=== PATIENT | female | born 1940 | race Caucasian/White ===

== ENCOUNTER 2017-01-13 08:43 | Day surgery (SDC) | payer MEDICARE, OTHER ==
--- NOTE | 2017-01-07 09:43 | PREOP HISTORY & PHYSICAL ---
HISTORY: 76 year old female with previous LASIK surgery x 2 OU and with developing cataracts OU - here for evaluation of declining vision in both eyes ( especially the left eye) ever since she got her new glasses. She is having more trouble seeing the television (sports scores). She also has to get closer to road signs, but she denies any problems with reading (when using over- the-counter readers), or seeing "starbursts or haloes" around lights at night. She prefers to wear [id number] reading glasses when reading. The current glasses are from May of 2016, and were made from an March manifest refraction (made at [facility]). PAST OCULAR HISTORY: LASIK OU (done 09/17/05 - [place] wavefront OD and +0.50 Sphere correction OS for monovision near OS - [facility] on [address] in [place]). Enhancement OU ([place] spherical equivalent OD and +0.75 Spherical equivalent OS on 01/11/06 - IC), Upper lid blepharoplasty and ptosis repair 02/03/07 (done in [place], [place]), Brow lift in May of 2001 (done in [facility]) - patient had a postoperative hematoma with left upper facial nerve palsy ever since, Developing cataracts OD > OS, Scintillating scotomas, Dysfunctional tear syndrome, Compound myopic astigmatism and presbyopia ( monovision near OS), OCULAR MEDICATIONS: None PAST MEDICAL HISTORY: Basal cell carcinoma (C44.91)2005 right forearm Breast cancer, right (C50.911)1993 Bilateral Mastectomy with B Reconstruction; 1 positive lymph node Cataract, nuclear sclerotic senile, bilateral (H25.13) Developing cataracts OU. 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 Seizure (R56.9) @ 30's; Dr Veloz ALLERGIES: Clindamycin HCl *ANTI-INFECTIVE AGENTS - MISC.* Pruritus, Swelling Remeron *ANTIDEPRESSANTS* Sleepiness Zestril *ANTIHYPERTENSIVES* Cough 12/29 FAMILY HISTORY: No Significant Family Ocular History SOCIAL HISTORY: Alcohol Use Drinks Socially. Tobacco Use Former smoker. Quit 1971 1-2 cigarettes per week Vehicle Driving Yes. CURRENT MEDICATIONS: AmLODIPine Besylate (5MG Tablet, 1 Oral daily, Taken starting 06/01/2016) Active. Atenolol (50MG Tablet, 1 Oral daily, Taken starting 08/26/2016) Active. Calcium /Vitamin D (1000mg/800iu Oral QD) Active. Citalopram Hydrobromide (20MG Tablet, 1 Oral daily, Taken starting 09/11/2015) Active. Diclofenac Sodium (75MG Tablet DR, 1 Oral daily, Taken starting 07/08/2016) Active. Estradiol (2MG Tablet, 1 Oral daily, Taken starting 07/13/2016) Active. Oxybutynin Chloride ER (10MG Tablet ER 24HR, 2 Oral daily, Taken starting 08/10) Active. Quinine Sulfate (325MG Tablet, Oral QHS prn) Active. (entry data) Medications Reconciled PAST SURGICAL HISTORY: Appendectomy BROW LIFT (82150) Brow lift in May of 2001 (done in [facility]) - patient had a postoperative hematoma with left upper facial nerve palsy ever since. Debridement of skin and subcutaneous [id number]/29/2016 Outpatient. wound right lower extremity, Dr. Christina LASIK ([id number]) LASIK OU (done 09/17/05 - [place] wavefront OD and +0.50 Sphere correction OS for monovision near OS - [facility] in [place]). Enhancement OU ([place] spherical equivalent OD and +0.75 Spherical equivalent OS on 01/11/06 - [facility]). Lt Breast Reconstruction and Replacment of [id number] Dr Krause Lt Glutues Medius and Minimus [id number] Dr Loza Lt Trochanteric [id number] Dr Loza Oophorectomy; Unilateral ruptured cyst R Ring Finger PIP Jt [id number] Dr Jimi Redd Wrist Reconstructive Surgery Dr Rodriguez Right Index finger DIP fusion with hardware post placed 2012 (OCR) Rotator Cuff Repair - [id number] Dr. Loza Rt Ring Finger PIP Jt Replacement and Rt Index Finger DIP Fusion [id number] Dr Olivo SOUTH with BSO Cervical Cancer Upper eyelid blepharoplasty and ptosis repair Upper lid blepharoplasty and ptosis repair 02/03/07 (done in [place]). REVIEW OF SYSTEMS: General Not Present- Fever. Skin Not Present- New Lesions, Skin Cancer and Skin Problems. HEENT Present- Blurred Vision (Distance) and Visual Disturbances (glare during day and floaters). Not Present- Decreased Hearing, Eye Pain, Sinusitis and Sleep Apnea. Respiratory Not Present- Asthma, Chronic Cough, Emphysema and Shortness of Breath. Breast Present- Breast Cancer. Cardiovascular Present- Hypertension. Not Present- Angina, Heart Problems, Heart Stent and Hyperlipidemia. Gastrointestinal Not Present- Heartburn and PUD. Female Genitourinary Not Present- Kidney Problems. Musculoskeletal Present- Joint Pain. Neurological Not Present- Decreased Memory, Headaches, Stroke and Vertigo. Psychiatric Not Present- Anxiety and Depression. Endocrine Not Present- Diabetes and Thyroid Problems. Hematology Not Present- Bleeding Problems and Blood Clots. Note: Reviewed by Dr. Cornejo. PHYSICAL EXAMINATION: Vitals (Chris Cornejo M.D.; 01/05/2017 5:31 PM) 01/05/2017 5:31 PM Pulse: 50 (Regular) P.OX: 93% (Room air) BP: 168/84 (Sitting, Left Wrist, Small) Chest and Lung Exam Auscultation Breath sounds - Clear and Symmetric throughout. Cardiovascular Auscultation Rhythm - Regular. Heart Sounds - Normal heart sounds. Murmurs & Other Heart Sounds - Auscultation of the heart reveals - No Murmurs. OCULAR EXAMINATION: VISUAL ACUITY: with correction (Glasses) OD 20/30-1 OS 20/40 NEAR J2 at 14" WORKING Rx: OD -1.25 Sphere OS -2.00 + 0.25 x 140 ADD +2.25 (Progressive lens) MANIFEST REFRACTION: OD -1.25 + 0.50 x 065 (20/30 BAT testing (medium setting) 20/80) Slightly better vision in trial frames OS -1.25 + 0.25 x 100 (20/30- BAT testing (medium setting) 20/50) Slightly better vision in trial frames ADD + 2.50 (J1+ at 14") Better near vision in trial frames than previous Rx CONFRONTATIONAL VISUAL PARKER: Normal to counting fingers in four quadrants OU PUPILS: Mild anisocoria OS > OD with no afferent pupillary defect seen EXTERNAL: Normal OU EXTRA-OCULAR MUSCLES: Versions full OU - orthotropic at both distance and near SLIT LAMP EXAM: LIDS/LASHES: Normal OU CONJUNCTIVA: Quiet OU CORNEA: Clear with poor tear film OU AC: Deep and quiet OU IRIS: Normal OU PUPILS: Round OU - dilated to only about 4 mm OU LENS: 3+ dense yellow nuclear sclerosis with 2-3+ vacuolar and diffuse cortical cataract changes OD. 2+ nuclear sclerosis with 2+ vacuolar cortical cataract changes OS ANTERIOR VITREOUS: No anterior vitreous cells or pigment seen OU TONOMETRY: TIME: 10:33 AM OD: 12 mm Hg OS: 12 mm Hg DILATING gtt: Phenylephrine 2.5% + Tropicamide 1% FUNDUS: C/D: 0.4 OD, 0.6 OS (significantly hazier view OD than OS on ophthalmoscopy - due to cataract OD) DISCS: Sharp with clear disc margins OU MACULA: Absent foveal reflex OU VESSELS: Normal OU KERATOMETRY: OD 42.16 / 42.95 x 111 OS 44.10 / 44.77 x AXIAL LENGTH: OD 24.17 +/- 0.008 OS 24.30 +/- 0.011 PERIPHERY: Posterior vitreous detachment OU with no retinal breaks seen IMPRESSION: Cataract, nuclear sclerotic senile, bilateral (H25.13) Story: Visually significant cataracts OD > OS - discussed with patient today who is quite bothered by her current vision and would like to proceed with cataract surgery. We discussed the refractive goals today and the patient would like to be corrected to a near-plano spherical equivalent postoperatively OD. We discussed the difficulty in obtaining accurate intra-ocular lens calculations - especially in light of having had LASIK x 2 OU, and the patient understands this risk and understands that she may require intra-ocular lens exchange if there is too great a deviation from the planned postoperative refractive error. The intra-ocular lens calculations were done using corneal optical coherence tomography and the Chava Fallon IOL power calculator, with a planned SA60AT intra-ocular lens power of +20.0 D OU (for -1.25 spherical equivalent OS in the future). 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 Left upper partial 7th nerve palsy due to a hematoma at the time of brow lift surgery done in 2000 - no evidence of exposure keratitis OS. Dry eye syndrome, bilateral (H04.123) Story: Dysfunctional tear syndrome - the patient is not treating this, but denies any symptoms. Post LASIK OU with monovision near vision OS - the patient had two treatments in both eyes (almost no correction at all OD and was treated for monovision near OS). PLAN: Cataract extraction with intra-ocular lens OD, January 13, 2017. Erythromycin ophthalmic ointment q hs OU as blepharitis prophylaxis (an e-Rx with refills x 1 was sent to [facility] in [place] ([phone] ) today). OPHTHALMIC BIOMETRY BY PARTIAL COHERENCE INTERFEROMETRY (94241) SCANNING COMPUTERIZED OPHTHALMIC DIAGNOSTIC IMAGING OF ANTERIOR SEGMENT (38722) Started Erythromycin 5MG/GM, Apply 1/8 inch Ointment to the eyelashes of both eyes at bedtime, 1 Tube, 01/05/2017, Ref. x1. Started Zymaxid 0.5%, 1 drop(s) four times daily to the operated eye, after surgery, 1 Bottle, 01/05/2017, Ref. x1. Started PrednisoLONE Acetate 1%, 1 drop(s) four times daily in the operated eye , after surgery, 10 Milliliter, 01/05/2017, Ref. x1. MTDD
[~2017-01-13 08:43] MED LIST: APRACLONIDINE 0.5% OPHTH 5 ML BTL OP ONE; BUPIVACAINE HCL/PF 0.75% 10 ML VIAL OP ONE; CIPROFLOXACIN 0.3% OPHTH 50 DROP/5 ML BTL OP SCH; CYCLOPENTOLATE HCL 1% OPHTH 2 ML BTL OP SCH; FLURBIPROFEN 0.03% OPHTH 2.5 ML BTL OP SCH; PHENYLEPHRINE 2.5% OPHTH 10 DROP/2 ML BTL OP SCH
[2017-01-13 09:43] VITALS: TEMP 97.5
[2017-01-13] MEDS ORDERED: APRACLONIDINE 0.5% OPHTH 5 ML BTL ONE (09:54)
[2017-01-13] MEDS ORDERED: FLURBIPROFEN 0.03% OPHTH 2.5 ML BTL ONE (09:54)
[2017-01-13] MEDS ORDERED: BUPIVACAINE HCL/PF 0.75% 10 ML VIAL ONE (09:54)
[2017-01-13] MEDS ORDERED: CYCLOPENTOLATE HCL 1% OPHTH 2 ML BTL ONE (09:54)
[2017-01-13] MEDS ORDERED: CIPROFLOXACIN 0.3% OPHTH 50 DROP/5 ML BTL ONE (09:54)
[2017-01-13] MEDS ORDERED: PHENYLEPHRINE 2.5% OPHTH 10 DROP/2 ML BTL ONE (09:54)
[2017-01-13] MEDS ORDERED: MIDAZOLAM HCL 2 MG/2 ML VIAL ONE (10:48)
[2017-01-13] MEDS ORDERED: KETOROLAC 0.45% OPHTH 1 DROP/EACH DROPERETTE ONE (11:23)
[2017-01-13] MEDS ORDERED: LIDOCAINE HCL/PF 1% 30 ML VIAL ONE (11:23)
[2017-01-13] MEDS ORDERED: CHONDROITIN/HYALURONIDATE OPHT 0.5 ML KIT ONE (11:23)
[2017-01-13] MEDS ORDERED: BACITRACIN OPHTH OINTMENT 3.5 GM TUBE ONE (11:23)
[2017-01-13 11:44] VITALS: BP 196/89; PULSE 53; RESP 16; O2SAT 91
--- NOTE | 2017-01-13 13:21 | OPERATIVE REPORT ---
DATE OF SURGERY: 01/13/2017. SURGEON: Chris Cornejo MD ANESTHESIA: Topical with monitored anesthesia care. PREOPERATIVE DIAGNOSIS: Cataract, right eye. POSTOPERATIVE DIAGNOSIS: Cataract, right eye. OPERATION PERFORMED: Cataract extraction by phacoemulsification with posterior chamber intraocular lens, right eye. COMPLICATIONS: None. PROCEDURE: The patient was brought to the operating room where she was placed in the supine position. After the instillation of additional tetracaine drops in the right eye, the eye was prepped and draped in the usual sterile ophthalmic manner. A lid speculum was placed in the right eye, after which an inferior paracentesis was fashioned with 1-mm steel keratome, and 0.2 mL of 1% nonpreserved lidocaine was injected intracamerally followed by Viscoat. A temporal clear corneal incision of 3-mm width was fashioned with a steel keratome. A continuous curvilinear capsulorrhexis was fashioned with a bent- needle cystitome and Utrata forceps under Viscoat. This was kept somewhat small as the patient's pupil did not dilate well. Hydrodissection was carried out with balanced salt solution on an intraocular cannula. The nucleus was noted to rotate freely. Phacoemulsification proceeded in a two-handed fashion utilizing typical phacoemulsification times and pacheco, as the nucleus was noted to be 2-3+ dense. Residual cortical material was then removed with the automated irrigation-aspiration handpiece. The anterior chamber and capsular bag were then reinflated with Provisc, after which an AcrySof model SA60AT foldable acrylic intraocular lens of 20.0 diopters power was placed into the capsular bag. The haptics were rotated with a Y hook and the intraocular lens was noted to center well. Residual viscoelastic was then removed with the automated irrigation-aspiration handpiece , after which the wound edges were hydrated with balanced salt solution. The intraocular pressure at the conclusion of the procedure was physiologic, and there was no evidence of wound leakage upon testing with a Weck Monika sponge. Acular drops and bacitracin ointment were placed in the right eye, and the patient was brought to the recovery area, having tolerated the procedure well. She was given full postoperative instructions. RAJI
== END 2017-01-13 11:50 | disposition home or self-care (01) ==
LOC: SDS 08:43
PROVIDERS: ATTEND Ophthalmology
DX: H25.11 Age-related nuclear cataract, right eye (principal); G51.0 Bell's palsy; H04.123 Dry eye syndrome of bilateral lacrimal glands; J44.9 Chronic obstructive pulmonary disease, unspecified; K57.90 Diverticulosis of intestine, part unspecified, without perforation or abscess without bleeding; I10 Essential (primary) hypertension; E78.5 Hyperlipidemia, unspecified; G43.109 Migraine with aura, not intractable, without status migrainosus; M15.9 Polyosteoarthritis, unspecified; M10.9 Gout, unspecified; Z85.3 Personal history of malignant neoplasm of breast; Z85.828 Personal history of other malignant neoplasm of skin; Z85.41 Personal history of malignant neoplasm of cervix uteri; Z79.899 Other long term (current) drug therapy
CPT/HCPCS: J0171; J2250

== ENCOUNTER 2017-03-17 07:27 | Day surgery (SDC) | payer MEDICARE, OTHER ==
--- NOTE | 2017-03-10 18:35 | PREOP HISTORY & PHYSICAL ---
HISTORY: 76 year old female with previous LASIK surgery x 2 OU - post recent cataract surgery OD. She notes very good vision in the right eye but notes that the left eye is now very blurred and she notes glare in the left eye. PAST OCULAR HISTORY: LASIK OU (done 09/17/05 - [place] wavefront OD and +0.50 Sphere correction OS for monovision near OS - [facility] on [address] in [place]). Enhancement OU ([place] spherical equivalent OD and +0.75 Spherical equivalent OS on 01/11/06 - [facility]), Upper lid blepharoplasty and ptosis repair 02/03/07 (done in [place], [place]), Brow lift in May of 2001 (done in [facility]) - patient had a postoperative hematoma with left upper facial nerve palsy ever since, Cataract extraction with PC IOL OD 01/13/17 (Prochoda), Visually significant cataract OS, Scintillating scotomas, Dysfunctional tear syndrome, Compound myopic astigmatism and presbyopia (monovision near OS), OCULAR MEDICATIONS: None PAST MEDICAL HISTORY: Basal cell carcinoma (C44.91)2005 right forearm Breast cancer, right (C50.911)1993 Bilateral Mastectomy with B Reconstruction; 1 positive lymph node Cataract extraction with PC IOL OD 01/13/17 (Prochoda). 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 Seizure (R56.9) @ 30's; Dr Veloz ALLERGIES: Clindamycin HCl *ANTI-INFECTIVE AGENTS - MISC.* Pruritus, Swelling Remeron *ANTIDEPRESSANTS* Sleepiness Zestril *ANTIHYPERTENSIVES* Cough 12/29 FAMILY HISTORY: No Significant Family Ocular History SOCIAL HISTORY: Alcohol Use Drinks Socially. Tobacco Use Former smoker. Quit 1971 1-2 cigarettes per week Vehicle Driving Yes. CURRENT MEDICATIONS: AmLODIPine Besylate (5MG Tablet, 1 Oral daily, Taken starting 06/01/2016) Active. Atenolol (50MG Tablet, 1 Oral daily, Taken starting 08/26/2016) Active. Calcium /Vitamin D (1000mg/800iu Oral QD) Active. Citalopram Hydrobromide (20MG Tablet, 1 Oral daily, Taken starting 09/11/2015) Active. Diclofenac Sodium (75MG Tablet DR, 1 Oral daily, Taken starting 07/08/2016) Active. Estradiol (2MG Tablet, 1 Oral daily, Taken starting 07/13/2016) Active. Oxybutynin Chloride ER (10MG Tablet ER 24HR, 2 Oral daily, Taken starting 08/10) Active. Quinine Sulfate (325MG Tablet, Oral QHS prn) Active. (entry data) Medications Reconciled PAST SURGICAL HISTORY: Appendectomy BROW LIFT (92626) Brow lift in May of 2001 (done in [facility]) - patient had a postoperative hematoma with left upper facial nerve palsy ever since. Cataract extraction with PC IOL OD 01/13/17 (Prochoda) Debridement of skin and subcutaneous [id number]/29/2016 Outpatient. wound right lower extremity, Dr. Christina LASIK ([id number]) LASIK OU (done 09/17/05 - [place] wavefront OD and +0.50 Sphere correction OS for monovision near OS - [facility] in [place]). Enhancement OU ([place] spherical equivalent OD and +0.75 Spherical equivalent OS on 01/11/06 - [facility]). Lt Breast Reconstruction and Replacment of [id number] Dr Krause Lt Glutues Medius and Minimus [id number] Dr Loza Lt Trochanteric [id number] Dr Loza Oophorectomy; Unilateral ruptured cyst R Ring Finger PIP Jt [id number] Dr Krause R Wrist Reconstructive Surgery Dr Rodriguez Right Index finger DIP fusion with hardware post placed 2013 (OCR) Rotator Cuff Repair - [id number] Dr. Loza Rt Ring Finger PIP Jt Replacement and Rt Index Finger DIP Fusion [id number] Dr Geovani MCGINNISH with BSO Cervical Cancer Upper eyelid blepharoplasty and ptosis repair Upper lid blepharoplasty and ptosis repair 02/03/07 (done in [place]). PHYSICAL EXAMINATION: Vitals (Chris Cornejo M.D.; 01/05/2017 5:31 PM) 01/05/2017 5:31 PM Pulse: 50 (Regular) P.OX: 93% (Room air) BP: 168/84 (Sitting, Left Wrist, Small) Chest and Lung Exam Auscultation Breath sounds - Clear and Symmetric throughout. Cardiovascular Auscultation Rhythm - Regular. Heart Sounds - Normal heart sounds. Murmurs & Other Heart Sounds - Auscultation of the heart reveals - No Murmurs. OCULAR EXAMINATION: VISUAL ACUITY: with correction (Glasses) OS 20/40 WORKING Rx: OD -1.25 Sphere OS -2.00 + 0.25 x 140 ADD +2.25 (Progressive lens) MANIFEST REFRACTION: OS -1.25 + 0.25 x 100 (20/30- BAT testing (medium setting) 20/50) Slightly better vision in trial frames CONFRONTATIONAL VISUAL PARKER: Normal to counting fingers in four quadrants OU PUPILS: Mild anisocoria OS > OD with no afferent pupillary defect seen EXTERNAL: Normal OU EXTRA-OCULAR MUSCLES: Versions full OU - orthotropic at both distance and near SLIT LAMP EXAM: LIDS/LASHES: Normal OU CONJUNCTIVA: Quiet OU CORNEA: Clear with poor tear film OU AC: Deep and quiet OU IRIS: Normal OU PUPILS: Round OU - dilated to only about 4 mm OU LENS: 2+ nuclear sclerosis with 2+ vacuolar cortical cataract changes OS ANTERIOR VITREOUS: No anterior vitreous cells or pigment seen OU TONOMETRY: TIME: 10:33 AM OD: 12 mm Hg OS: 12 mm Hg DILATING gtt: Phenylephrine 2.5% + Tropicamide 1% FUNDUS: C/D: 0.4 OD, 0.6 OS DISCS: Sharp with clear disc margins OU MACULA: Absent foveal reflex OU VESSELS: Normal OU PERIPHERY: Posterior vitreous detachment OU with no retinal breaks seen KERATOMETRY: OD 42.16 / 42.95 x 111 OS 44.10 / 44.77 x AXIAL LENGTH: OD 24.17 +/- 0.008 OS 24.30 +/- 0.011 IMPRESSION: Cataract, nuclear sclerotic senile, left - We discussed the difficulty in obtaining accurate intra-ocular lens calculations - especially in light of having had LASIK x 2 OU, and the patient understands this risk and understands that she may require intra-ocular lens exchange if there is too great a deviation from the planned postoperative refractive error. The intra-ocular lens calculations were done using corneal optical coherence tomography and the Chava Fallon IOL power calculator, with a planned SA60AT intra-ocular lens power of 20.0 D OU (for -1.25 spherical equivalent OS). 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 Dry eye syndrome, bilateral (H04.123) Post LASIK OU with monovision near vision OS - the patient had two treatments in both eyes (almost no correction at all OD and was treated for monovision near OS). PLAN: Cataract extraction with intra-ocular lens OS, March 17, 2017. Lid soaks and scrubs BID OU (pre-operative blepharitis protocol and antibiotic ointment instructions handout given to patient today). Erythromycin ophthalmic ointment q hs OU as blepharitis prophylaxis. MTDD
[~2017-03-17 07:27] MED LIST changes: -APRACLONIDINE 0.5% OPHTH 5 ML BTL OP ONE; +APRACLONIDINE 0.5% OPHTH 5 ML BTL OP PRN; -BUPIVACAINE HCL/PF 0.75% 10 ML VIAL OP ONE; +BUPIVACAINE HCL/PF 0.75% 10 ML VIAL OP PRN
[2017-03-17] MEDS: MIDAZOLAM HCL 2 MG/2 ML SYR IV SCH ×2 (08:01→08:40)
[2017-03-17 08:04] VITALS: RESP 16; TEMP 97.7
[2017-03-17] MEDS ORDERED: APRACLONIDINE 0.5% OPHTH 5 ML BTL ONE (08:09)
[2017-03-17] MEDS ORDERED: CIPROFLOXACIN 0.3% OPHTH 50 DROP/5 ML BTL ONE (08:09)
[2017-03-17] MEDS ORDERED: FLURBIPROFEN 0.03% OPHTH 2.5 ML BTL ONE (08:09)
[2017-03-17] MEDS ORDERED: BUPIVACAINE HCL/PF 0.75% 10 ML VIAL ONE (08:09)
[2017-03-17] MEDS ORDERED: PHENYLEPHRINE 2.5% OPHTH 10 DROP/2 ML BTL ONE (08:09)
[2017-03-17] MEDS ORDERED: CYCLOPENTOLATE HCL 1% OPHTH 2 ML BTL ONE (08:09)
[2017-03-17] MEDS ORDERED: MIDAZOLAM HCL 2 MG/2 ML VIAL ONE (08:10)
[2017-03-17] MEDS ORDERED: KETOROLAC 0.45% OPHTH 1 DROP/EACH DROPERETTE ONE (08:53)
[2017-03-17] MEDS ORDERED: BACITRACIN OPHTH OINTMENT 3.5 GM TUBE ONE (08:53)
[2017-03-17] MEDS ORDERED: LIDOCAINE HCL/PF 1% 30 ML VIAL ONE (08:53)
[2017-03-17] MEDS ORDERED: CHONDROITIN/HYALURONIDATE OPHT 0.5 ML KIT ONE (08:53)
[2017-03-17] MEDS ORDERED: hydrALAZINE HCL 20 MG/ML VIAL ONE (09:09)
[2017-03-17 09:41] VITALS: BP 184/82; PULSE 52; O2SAT 95
--- NOTE | 2017-03-17 11:07 | OPERATIVE REPORT ---
DATE OF SURGERY: 03/17/2017. SURGEON: Chris Cornejo MD ANESTHESIA: Topical with monitored anesthesia care. PREOPERATIVE DIAGNOSIS: Cataract, left eye. POSTOPERATIVE DIAGNOSIS: Cataract, left eye. OPERATION PERFORMED: Cataract extraction by phacoemulsification with posterior chamber intraocular lens, left eye. COMPLICATIONS: None. PROCEDURE: The patient was brought to the operating room where she was placed in the supine position. After the instillation of additional tetracaine drops in the left eye, the eye was prepped and draped in the usual sterile ophthalmic manner. A lid speculum was placed in the left eye, after which an inferior paracentesis was fashioned with 1-mm steel keratome, and 0.2 mL of 1% nonpreserved lidocaine was injected intracamerally followed by Viscoat. A temporal clear corneal incision of 3-mm width was fashioned with a steel keratome. A continuous curvilinear capsulorrhexis was fashioned with a bent-needle cystitome and Utrata forceps under Viscoat. Hydrodissection was carried out with balanced salt solution on an intraocular cannula. The nucleus was noted to rotate freely. Phacoemulsification proceeded in a two-handed fashion utilizing typical phacoemulsification times and pacheco, as the nucleus was noted to be 2+ dense. Residual cortical material was then removed with the automated irrigation-aspiration handpiece. The anterior chamber and capsular bag were then reinflated with Provisc, after which an AcrySof model SA60AT foldable acrylic intraocular lens of 20.0 diopters power was placed into the capsular bag. The haptics were rotated with a Y hook and the intraocular lens was noted to center well. Residual viscoelastic was then removed with the automated irrigation-aspiration handpiece , after which the wound edges were hydrated with balanced salt solution. The intraocular pressure at the conclusion of the procedure was physiologic, and there was no evidence of wound leakage upon testing with a Weck Monika sponge. Acular drops and bacitracin ointment were placed in the left eye, and the patient was brought to the recovery area, having tolerated the procedure well. She was given full postoperative instructions. RAJI
== END 2017-03-17 09:45 | disposition home or self-care (01) ==
LOC: SDS 07:27
PROVIDERS: ATTEND Ophthalmology
DX: H25.12 Age-related nuclear cataract, left eye (principal); G51.0 Bell's palsy; H04.123 Dry eye syndrome of bilateral lacrimal glands; J44.9 Chronic obstructive pulmonary disease, unspecified; F32.89 Other specified depressive episodes; M10.9 Gout, unspecified; I10 Essential (primary) hypertension; E78.5 Hyperlipidemia, unspecified; M15.9 Polyosteoarthritis, unspecified; Z85.3 Personal history of malignant neoplasm of breast; Z85.41 Personal history of malignant neoplasm of cervix uteri; M50.30 Other cervical disc degeneration, unspecified cervical region; Z85.828 Personal history of other malignant neoplasm of skin; Z79.899 Other long term (current) drug therapy
CPT/HCPCS: 66984; J0171; J0360; J2250; V2632